=== PATIENT | female | born 1945 | race Caucasian/White ===

== ENCOUNTER 2023-03-12 16:33 | Emergency (ER) | payer MEDICARE ==
[2023-03-12] MEDS ORDERED: Acetaminophen 500 MG Tab PO ONE (17:02)
== END 2023-03-12 20:10 | disposition home or self-care (01) ==
LOC: JP.ED 16:33
DX: S52.022B Displaced fracture of olecranon process without intraarticular extension of left ulna, initial encounter for open fracture type I or II (principal); S92.354A Nondisplaced fracture of fifth metatarsal bone, right foot, initial encounter for closed fracture; Z88.2 Allergy status to sulfonamides; Z88.5 Allergy status to narcotic agent; Z88.8 Allergy status to other drugs, medicaments and biological substances; Z20.822 Contact with and (suspected) exposure to COVID-19; W18.30XA Fall on same level, unspecified, initial encounter
CPT/HCPCS: 29105; 73080; 73630; 99284; A9270; U0002

== ENCOUNTER 2023-03-13 08:27 | Day surgery (SDC) | payer MEDICARE ==
[2023-03-13] MEDS ORDERED: Nozin Nasal Sanitizer NASBOTH ONE (08:45)
[2023-03-13 08:48] LABS: HEMATOCRIT 38.6 % (34.3-46.0); HEMOGLOBIN 13.5 g/dL (11.2-15.5); MEAN CORPUSCULAR HEMOGLOBIN 30.1 pg (31.6-35.5); MEAN CORPUSCULAR VOLUME 86.2 fL (81.4-99.0); RED BLOOD CELL COUNT 4.48 M/uL (3.77-5.24); WHITE BLOOD CELL COUNT,WBC 8.3 K/uL (3.2-11.0)
[2023-03-13] MEDS ORDERED: fentaNYL 250 MCG/5 ML SDV ONE (08:56)
[2023-03-13] MEDS ORDERED: Neostigmine Methylsulfate 1 MG/ML 5 ML Syringe ONE (09:00)
[2023-03-13] MEDS ORDERED: Dexamethasone 4 MG/ML SDV ONE (09:00)
[2023-03-13] MEDS ORDERED: Ondansetron 4 MG/2 ML SDV ONE (09:00)
[2023-03-13] MEDS ORDERED: Rocuronium 50 MG/5 ML Vial ONE (09:00)
[2023-03-13 09:04] LABS: CALCIUM 8.7 mg/dL (8.5-10.1); CREATININE 0.8 mg/dL (0.6-1.0); EST CRCL DRUG DOSING (CG) 52.99 mL/min; POTASSIUM,K 3.5 mmol/L (3.6-5.2)
[2023-03-13] MEDS ORDERED: Lactated Ringers 1,000 ML IV SCH (09:15)
[2023-03-13 09:17] LABS: ANION GAP 12.5 mmol/L (5.0-14.0)
[2023-03-13] MEDS ORDERED: ceFAZolin 1 GM in Premix Bag 1 BAG IV ONE (09:30)
[2023-03-13] MEDS ORDERED: Bupivacaine 0.5% 30 ML SDV INJECT ONE ×2 (12:03)
[2023-03-13] MEDS ORDERED: Glycopyrrolate 0.2 MG/ML 5 ML MDV ONE (12:06)
[2023-03-13] MEDS ORDERED: Ketorolac 30 MG/ML SDV ONE (12:12)
[2023-03-13] MEDS ORDERED: traMADol 50 MG Tab PO PRN (13:35)
== END 2023-03-13 15:15 | disposition home or self-care (01) ==
LOC: JP.SDS 08:27
PROVIDERS: ATTEND Specialist
DX: S52.022A Displaced fracture of olecranon process without intraarticular extension of left ulna, initial encounter for closed fracture (principal); S92.355A Nondisplaced fracture of fifth metatarsal bone, left foot, initial encounter for closed fracture; I10 Essential (primary) hypertension; Z88.2 Allergy status to sulfonamides; Z88.8 Allergy status to other drugs, medicaments and biological substances; Z79.899 Other long term (current) drug therapy; Z88.5 Allergy status to narcotic agent; W19.XXXA Unspecified fall, initial encounter
CPT/HCPCS: 24685; 36415; 76000; 80048; 85027; A9270; C1769; J0690; J1100; J1885; J2405; J2710; J3010; J3490; J7120